=== PATIENT | male | born 1945 | race Caucasian/White ===

== ENCOUNTER 2024-02-09 09:16 | Day surgery (SDC) | payer MEDICARE ==
[2024-02-08 15:12] VITALS: BMI 24.3
[2024-02-09] MEDS ORDERED: Iopamidol 300 61% 100 ML VIAL FS ONE (10:09)
[2024-02-09 10:29] LABS: #Basophils 0.07 10x3/uL (0.0-0.2); #Eosinophils 0.31 10x3/uL (0.0-0.5); #Monocytes 0.68 10x3/uL (0.0-1.1); #Neutrophils 3.58 10x3/uL (1.5-8.4); %Basophils 1.1 % (0.0-2.0); %Eosinophils 4.9 % (0.0-6.0); %Lymphocytes 26.2 % (18.0-47.0); %Monocytes 10.7 % (0.0-10.0); %Neutrophils 56.6 % (40.0-75.0); Hematocrit 36.9 % (38.8-50.0); Hemoglobin 12.1 g/dL (13.5-17.5); Mean Corpuscular HGB CONC 32.8 g/dL (32.0-36.0); Mean Corpuscular Hemoglobin 29.6 pg (27.0-33.0); Mean Corpuscular Volume 90.2 fL (81.2-95.1); Mean Platelet Volume 8.5 fL (7.4-10.4); Platelet Count 210 10x3/uL (150-450); RBC Distribution Width 15.3 % (11.5-14.5); Red Blood Cell (RBC) Count 4.09 10x6/uL (4.32-5.72); White Blood Cell (WBC) Count 6.3 10x3/uL (3.5-10.5)
[2024-02-09] MEDS ORDERED: Aspirin Chewable 81 MG TAB ONE (10:31)
[2024-02-09 10:41] LABS: INR-International Normal Ratio 1.1; PTT 25.4 sec (22.0-33.0); Prothrombin Time 11.4 sec (9.5-12.1)
[2024-02-09 10:43] LABS: Anion Gap 14 mmol/L (10-20); BUN (Urea Nitrogen) 15 mg/dL (8.4-25.7); Calc. Creatinine Clearance 51 mL/min (70-130); Calcium 9.3 mg/dL (7.8-10.44); Carbon Dioxide 23 mmol/L (23-31); Chloride 108 mmol/L (98-107); Estimated GFR 57; Glucose 98 mg/dL (83-110); Potassium 4.5 mmol/L (3.5-5.1); Sodium 140 mmol/L (136-145)
[2024-02-09] MEDS ORDERED: Midazolam HCl 2 mg/2 ml Vial ONE (11:02)
[2024-02-09] MEDS ORDERED: Lidocaine 1% (PF) 30 ML VIAL ONE (11:02)
[2024-02-09] MEDS ORDERED: fentaNYL 50 mcg/mL 1 mL Vial ONE (11:02)
[2024-02-09] MEDS ORDERED: Heparin 10,000 UNITS/ 10 ML VIAL ONE (11:02)
[2024-02-09 11:03] VITALS: BP 142/79; TEMP 98.4
[2024-02-09] MEDS ORDERED: Protamine Sulfate 50 MG/5 ML VIAL ONE (12:10)
== END 2024-02-09 14:25 | disposition home or self-care (01) ==
LOC: CSHSDC 09:16
PROVIDERS: ATTEND Internal Medicine Cardiovascular Disease
PROC: 04H Lower Arteries, Insertion (ICD-10-PCS; principal; 2024-02-09)
PROC: 04H Lower Arteries, Insertion (ICD-10-PCS; 2024-02-09)
DX: I70.212 Atherosclerosis of native arteries of extremities with intermittent claudication, left leg (principal); E78.5 Hyperlipidemia, unspecified; I10 Essential (primary) hypertension; I25.2 Old myocardial infarction; E11.9 Type 2 diabetes mellitus without complications; Z87.891 Personal history of nicotine dependence; Z88.8 Allergy status to other drugs, medicaments and biological substances; Z79.899 Other long term (current) drug therapy; M79.605 Pain in left leg
CPT/HCPCS: 36246; 71046; 75716; 75736; 80048; 85025; 85610; 85730; 93005; C1760 ×2; C1769 ×2; C1894; J1644; J2001; J2250; J2720; Q9967; 99152; 99153; J3010